=== PATIENT | male | born 2000 | race Caucasian/White ===

== ENCOUNTER 2022-10-30 02:50 | Emergency (ER) | payer MEDICAID | END 2022-10-30 03:50 | disposition home or self-care (01) | LOC: FB.ED 02:50 | DX: S93.402A Sprain of unspecified ligament of left ankle, initial encounter (principal); X50.1XXA Overexertion from prolonged static or awkward postures, initial encounter; Y99.0 Civilian activity done for income or pay | CPT/HCPCS: 73610-LT; 99000; 99282; 99283 ==